=== PATIENT | female | born 1975 | race Caucasian/White ===

== ENCOUNTER 2019-01-08 08:00 | Emergency (ER) | payer BC ==
[2019-01-08] MEDS ORDERED: Lidocaine Viscous Sol 2% 15 ml UD Cup ONE (08:33)
[2019-01-08] MEDS ORDERED: Mag-Al Plus 1200 MG/1200 MG/120 MG/30 ML UDCUP ONE (08:34)
[2019-01-08 08:43] LABS: #Basophils 0.1 thou/uL (0.0-0.2); #Eosinphils 0.1 thou/uL (0.0-0.7); #Lymphocytes 1.8 thou/uL (1.20-3.40); #Monocytes 0.5 thou/uL (0.11-0.59); #Neutrophils 2.6 thou/uL (1.40-6.50); %Basophils 1.8 % (0.0-1.0); %Eosinophils 2.1 % (0.0-10.0); %Lymphocytes 35.6 % (21.0-51.0); %Monocytes 8.9 % (0.0-10.0); %Neutrophils 51.7 % (42.0-75.0); Hemoglobin 13.2 g/dL (12.0-16.0); Mean Corpuscular HGB CONC 34.8 g/dL (32.0-36.0); Mean Corpuscular Hemoglobin 32.1 pg (27.0-31.0); Mean Corpuscular Volume 92.3 fL (78.0-98.0); Mean Platelet Volume 9.6 fL (7.4-10.4); Platelet Count 166 thou/uL (130-400); Red Blood Cell (RBC) Count 4.09 mill/uL (4.20-5.40); White Blood Cell (WBC) Count 5.1 thou/uL (4.8-10.8)
[2019-01-08 08:50] LABS: ALT (SGPT) 62 U/L (8-55); AST (SGOT) 38 U/L (5-34); Albumin 3.8 g/dL (3.5-5.0); Alkaline Phosphatase 59 U/L (40-110); Anion Gap 13 mmol/L (10-20); BUN (Urea Nitrogen) 11 mg/dL (7.0-18.7); Bilirubin, Total 0.8 mg/dL (0.2-1.2); Calc. Creatinine Clearance 0 mL/min (70-130); Calcium 8.8 mg/dL (7.8-10.44); Carbon Dioxide 28 mmol/L (22-29); Chloride 102 mmol/L (98-107); Estimated GFR-MDRD Greater than 90; Globulin 2.9 g/dL (2.4-3.5); Glucose 116 mg/dL (70-105); Potassium 3.3 mmol/L (3.5-5.1); Protein, Total 6.7 g/dL (6.0-8.3); Sodium 140 mmol/L (136-145)
--- NOTE | 2019-01-08 09:05 | RAD ---
SINGLE VIEW CHEST: Date: 01/08/19 COMPARISON: 08/22/16. HISTORY: Chest pain. FINDINGS: Single view of the chest shows a normal sized cardiomediastinal silhouette. There is no evidence of c onsolidation, mass, or pleural effusion. The bones are unremarkable. IMPRESSION: No evidence of acute cardiopulmonary disease. POS: [facility]
== END 2019-01-08 09:25 | disposition home or self-care (01) ==
LOC: SCSER 08:00
DX: R07.89 Other chest pain (principal); E78.5 Hyperlipidemia, unspecified; E78.00 Pure hypercholesterolemia, unspecified; I10 Essential (primary) hypertension; F41.9 Anxiety disorder, unspecified; Z79.899 Other long term (current) drug therapy
CPT/HCPCS: 71045; 80053; 84484; 85025; 93005

== ENCOUNTER 2022-07-13 13:31 | Emergency (ER) | payer BC, OTHER ==
[2022-07-13] MEDS ORDERED: Ketorolac Tromethamine 30 MG/ML VIAL ONE (14:35)
[2022-07-13] MEDS ORDERED: Morphine 4 MG/ML VIAL ONE (15:15)
[2022-07-13] MEDS ORDERED: diphenhydrAMINE 50 MG/ML VIAL ONE (15:20)
== END 2022-07-13 16:34 | disposition home or self-care (01) ==
LOC: ERS 13:31
DX: S32.040A Wedge compression fracture of fourth lumbar vertebra, initial encounter for closed fracture (principal); I10 Essential (primary) hypertension; W01.0XXA Fall on same level from slipping, tripping and stumbling without subsequent striking against object, initial encounter; Y99.0 Civilian activity done for income or pay
CPT/HCPCS: 72100; 72220; 96374; 96375; J1200; J1885; J2270